=== PATIENT | male | born 1970 | race African-American/Black ===

== ENCOUNTER 2019-05-09 14:07 | Observation (INO) | payer BC ==
[2019-05-09] MEDS ORDERED: NORMAL SALINE 1000 ML 1,000 ML IV ONE (14:19)
--- NOTE | 2019-05-09 14:25 | ER Document Report ---
ED Cardiac - General Chief Complaint: Palpitations Stated Complaint: PALPITATIONS Time Seen by Provider: 05/09/19 14:12 Notes: 48-year-old male with past medical history of SVT presents for palpitations that started while fishing. Patient went to urgent care where heart rate was found to be 190. EMS was called. EMS gave adenosine 6 mg IV with no improvement and a dose of adenosine 12 mg was then given which brought her heart rate down to 110. Patient also received 300 cc of LR IV. Patient states he feels better. Patient denies any chest pain, dyspnea, nausea/vomiting, abdominal pain, fevers, dizziness/syncope. Patient states similar episode approximately 8 years ago which required medicine to convert him. Patient was recently placed on atenolol by his PCP and has been taking for past several weeks. Patient states he recently saw his dashboard developer in [facility] 2 weeks ago and had a negative nuclear stress test. - Related Data Allergies/Adverse Reactions: No Known Allergies Allergy (Verified 05/09/19 14:12) Past Medical History - Social History Smoking Status: Unknown if Ever Smoked Family History: None Review of Systems - Review of Systems Notes: Constitutional: Negative for fever. HENT: Negative for sore throat. Eyes: Negative for visual changes. Cardiovascular: Positive for palpitations. Negative for chest pain. Respiratory: Negative for shortness of breath. Gastrointestinal: Negative for abdominal pain, vomiting or diarrhea. Genitourinary: Negative for dysuria. Musculoskeletal: Negative for back pain. Skin: Negative for rash. Neurological: Negative for headaches, weakness or numbness. 10 point ROS negative except as marked above and in HPI. Physical Exam - Vital signs Vitals: Pulse Ox 98 05/09/19 14:10 - Notes Notes: GENERAL: Well-appearing, well-nourished and in no acute distress. HEAD: Atraumatic, normocephalic. EYES: Extraocular movements intact, sclera anicteric, conjunctiva are normal. NECK: Normal range of motion, supple without lymphadenopathy or JVD. LUNGS: Breath sounds clear to auscultation bilaterally and equal. No wheezes rales or rhonchi. HEART: Tachycardic without murmurs, rubs or gallops. ABDOMEN: Soft, nontender. No guarding, no rebound. No masses appreciated. EXTREMITIES: Normal range of motion, no pitting or edema. No clubbing or cyanosis. NEUROLOGICAL: Cranial nerves II through XII grossly intact. Normal speech, normal gait. PSYCH: Normal mood, normal affect. SKIN: Warm, Dry, normal turgor, no rashes or lesions noted. Course - Re-evaluation Re-evalutation: 05/09/19 48-year-old male with past medical history of SVT presents with palpitations. Patient was found to have a heart rate of 1 90-200 at urgent care and EMS was called. 6 mg of adenosine administered with no relief. 12 mg of adenosine then were given with improvement of HR to 110. Patient denies chest pain, dyspnea, dizziness/syncope. Patient states similar episode approximately 8 years ago. Patient states she just had cardiac work-up including nuclear stress test 2 weeks ago with his dashboard developer in [place]. Cardiac work-up initiated. Nontoxic in appearance well-appearing. Patient is mildly tachycardic. PE otherwise unremarkable. Patient's states he wants to go back to fishing. 05/09/19 19:[address] Delacruz who states pt needs to stay for obs. Troponin most likely elevating due to SVT. Dr. Delacruz states to also increase dose of Atenolol. Pt is currently on Atenolol 25 mg po once daily. Discussed with pt who agrees with plan of care. Pt denies ever having chest pain. 05/09/19 19:[address] Nazario who accepted pt for admission. Tele bed. - Vital Signs Vital signs: Temp Pulse Resp BP Pulse Ox 98.8 F 113 H 18 131/81 H 98 05/09/19 14:13 05/09/19 14:13 05/09/19 18:01 05/09/19 18:01 05/09/19 18:01 - Laboratory Result Diagrams: 05/09/19 14:34 05/09/19 14:34 Laboratory results interpreted by me: 05/09/19 05/09/19 14:34 14:34 Hgb 13.3 L RDW 15.6 H Creatine Kinase 221 H Discharge - Discharge Clinical Impression: Palpitations, SVT (supraventricular tachycardia), Elevated troponin Condition: Stable Disposition: ADMITTED OBSERVATION Admitting Provider: Aravind (Hospitalist) Unit Admitted: Telemetry
[2019-05-09 15:01] LABS: ABSOLUTE EOSINOPHILS # (AUTO) 0.1 10^3/uL (0.0-0.6); ABSOLUTE LYMPHOCYTES (AUTO) 2.4 10^3/uL (0.5-4.7); ABSOLUTE MONOCYTES (AUTO) 0.7 10^3/uL (0.1-1.4); ABSOLUTE NEUT (AUTO) 2.9 10^3/uL (1.7-8.2); BASOPHILS % (AUTO) 0.3 % (0-2); EOSINOPHILS % (AUTO) 0.9 % (0-6); HEMATOCRIT 40.9 % (37.9-51.0); HEMOGLOBIN 13.3 g/dL (13.5-17.0); LYMPHOCYTES % (AUTO) 39.9 % (13-45); MEAN CORPUSCULAR HEMOGLOBIN 27.7 pg (27.0-33.4); MEAN CORPUSCULAR HGB CONC 32.5 g/dL (32.0-36.0); MEAN CORPUSCULAR VOLUME 85 fl (80-97); PLATELET COUNT 266 10^3/uL (150-450); RED CELL DISTRIBUTION WIDTH 15.6 % (11.5-14.0); SEGMENTED NEUTROPHILS % (AUTO) 47.9 % (42-78); TOTAL CELLS COUNTED % (AUTO) 100 %
--- NOTE | 2019-05-09 15:18 | RADIOLOGY REPORT (SQ) ---
EXAM DESCRIPTION: CHEST SINGLE VIEW COMPLETED DATE/TIME: 05/09/2019 2:52 pm REASON FOR STUDY: mp palpitations COMPARISON: None. EXAM PARAMETERS: NUMBER OF VIEWS: One view. TECHNIQUE: Single frontal radiographic view of the chest acquired. RADIATION DOSE: NA LIMITATIONS: None. FINDINGS: LUNGS AND PLEURA: No consolidation, pleural effusion or pneumothorax. MEDIASTINUM AND HILAR STRUCTURES: No mediastinal or hilar contour abnormality. HEART AND VASCULAR STRUCTURES: The cardiac silhouette and pulmonary vasculature are within normal stanley its given the low inspiratory lung volumes. BONES: No acute findings. HARDWARE: None in the chest. OTHER: No other finding. IMPRESSION: No acute cardiopulmonary process. TECHNICAL DOCUMENTATION: JOB ID: [id number] All Rights Reserved Reading location - IP/workstation name: [email or web address]
[2019-05-09 15:20] LABS: ALKALINE PHOSPHATASE 63 U/L (38-126); ANION GAP 8 (5-19); ASPARTATE AMINO TRANSFERASE 46 U/L (17-59); BILIRUBIN,DIRECT 0.1 mg/dL (0.0-0.4); BILIRUBIN,TOTAL 0.6 mg/dL (0.2-1.3); BLOOD UREA NITROGEN 14 mg/dL (7-20); CALCIUM 10.2 mg/dL (8.4-10.2); CARBON DIOXIDE 28 mmol/L (22-30); CHLORIDE 102 mmol/L (98-107); CREATINE KINASE 221 U/L (55-170); GLUCOSE 88 mg/dL (75-110); POTASSIUM 4.1 mmol/L (3.6-5.0); TOTAL PROTEIN 7.3 g/dL (6.3-8.2)
[2019-05-09 15:32] LABS: CREATINE KINASE MB 1.85 ng/mL (<4.55)
[2019-05-09 15:37] LABS: TROPONIN I 0.054 ng/mL
[2019-05-09] MEDS ORDERED: ASPIRIN 81 MG TABLET, CHEWABLE PO ONE (18:54)
[2019-05-09] MEDS ORDERED: ATENOLOL 50 MG TABLET PO ONE (19:12)
[2019-05-09] MEDS ORDERED: ACETAMINOPHEN 325 MG TABLET PO PRN (20:01)
[2019-05-09] MEDS ORDERED: MAG HYDROX/AL HYDROX/SIMETH SUSP 30 ML UDCUP PO PRN (20:01)
--- NOTE | 2019-05-09 20:29 | EKG REPORT ---
SEVERITY:- ABNORMAL ECG - SINUS TACHYCARDIA LEFT AXIS DEVIATION ABNRM R PROG, CONSIDER ASMI OR LEAD PLACEMENT : Confirmed by: Paul Juárez MD 09-May-2019 20:27:54
[2019-05-09] MEDS: METOPROLOL TARTRATE 50 MG TABLET PO SCH (21:25)
[2019-05-09] MEDS ORDERED: ATORVASTATIN CALCIUM 80 MG TABLET PO SCH (22:00)
--- NOTE | 2019-05-10 06:16 | PDOC H&P ---
History of Present Illness Admission Date/PCP: 05/09/19 20:03 Patient complains of: Palpitations History of Present Illness: BRANNON KENNEDY is a 48 year old male with a past medical history of obesity and SVT. He presents 30 minutes after the onset of palpitations while fishing. EMS responded finding SVT with a heart rate in the 190s he received adenosine 6 fol lowed by 12 resulting in heart rate in the 1 teens. He is brought to the emergency room for evaluation denying chest pain nausea vomiting shortness of breath. EKG shows sinus tachycardia and elevated troponin of 0.195. He denies recent occurrence of SVT and has had good control over the last 8 years with only one exacerbation. He denies recent change in medications, alcohol, excessive caffeine but admits to use of herbal supplementation. He denies recent weight loss or change of bowel habits. He receives atenolol and referred to the hospitalist for admission. Past Medical History Cardiac Medical History: Reports: Hypertension, Other - SVT Pulmonary Medical History: Reports: None EENT Medical History: Reports: None Neurological Medical History: Reports: None Endocrine Medical History: Reports: None Renal/ Medical History: Reports: None Malignancy Medical History: Reports: None GI Medical History: Reports: None Musculoskeltal Medical History: Reports: None Skin Medical History: Reports: None Psychiatric Medical History: Reports: None Denies: Depression Traumatic Medical History: Reports: None Hematology: Reports: None Past Surgical History Past Surgical History: Reports: None Social History Information Source: Patient Smoking Status: Never Smoker Electronic Cigarette use?: No Frequency of Alcohol Use: None Hx Recreational Drug Use: No Drugs: None Hx Prescription Drug Abuse: No - Advance Directive Resuscitation Status: Full Code Family History Family History: Hypertension Parental Family History Reviewed: Yes Children Family History Reviewed: Yes Sibling(s) Family History Reviewed.: Yes Medication/Allergy Home Medications: Atenolol [Tenormin] 25 mg PO DAILY 05/09/19 Allergies/Adverse Reactions: No Known Allergies Allergy (Verified 05/09/19 14:12) Review of Systems Constitutional: ABSENT: chills, fever(s), headache(s), weight gain, weight loss Eyes: ABSENT: visual disturbances Ears: ABSENT: hearing changes Cardiovascular: ABSENT: chest pain, dyspnea on exertion, edema, orthropnea, palpitations Respiratory: ABSENT: cough, hemoptysis Gastrointestinal: ABSENT: abdominal pain, constipation, diarrhea, hematemesis, hematochezia, nausea, vomiting Genitourinary: ABSENT: dysuria, hematuria Musculoskeletal: ABSENT: joint swelling Integumentary: ABSENT: rash, wounds Neurological: ABSENT: abnormal gait, abnormal speech, confusion, dizziness, focal weakness, syncope Psychiatric: ABSENT: anxiety, depression, homidical ideation, suicidal ideation Endocrine: ABSENT: cold intolerance, heat intolerance, polydipsia, polyuria Hematologic/Lymphatic: ABSENT: easy bleeding, easy bruising Physical Exam Vital Signs: Temp Pulse Resp BP Pulse Ox 97.8 F 78 14 119/56 L 100 05/10/19 00:33 05/10/19 00:33 05/10/19 00:33 05/10/19 00:33 05/10/19 00:33 Intake & Output 05/08/19 05/09/19 05/10/19 11:59 11:59 11:59 Intake Total 1000 Balance 1000 Weight 143.3 kg General appearance: PRESENT: no acute distress, well-developed, well-nourished Head exam: PRESENT: atraumatic, normocephalic Eye exam: PRESENT: conjunctiva pink, EOMI, PERRLA. ABSENT: scleral icterus Ear exam: PRESENT: normal external ear exam Mouth exam: PRESENT: moist, tongue midline Neck exam: ABSENT: carotid bruit, JVD, lymphadenopathy, thyromegaly Respiratory exam: PRESENT: clear to auscultation cora. ABSENT: rales, rhonchi, wheezes Cardiovascular exam: PRESENT: RRR. ABSENT: diastolic murmur, rubs, systolic murmur Pulses: PRESENT: normal dorsalis pedis pul Vascular exam: PRESENT: normal capillary refill GI/Abdominal exam: PRESENT: normal bowel sounds, soft. ABSENT: distended, guarding, mass, organolmegaly, rebound, tenderness Rectal exam: PRESENT: deferred Extremities exam: PRESENT: full ROM. ABSENT: calf tenderness, clubbing, pedal edema Neurological exam: PRESENT: alert, awake, oriented to person, oriented to place, oriented to time, oriented to situation, CN II-XII grossly intact. ABSENT: motor sensory deficit Psychiatric exam: PRESENT: appropriate affect, normal mood. ABSENT: homicidal ideation, suicidal ideation Skin exam: PRESENT: dry, intact, warm. ABSENT: cyanosis, rash Results Laboratory Results: 05/09/19 14:34 05/09/19 14:34 05/09/19 05/09/19 05/09/19 14:34 14:34 14:34 WBC 6.0 RBC 4.80 Hgb 13.3 L Hct 40.9 MCV 85 MCH 27.7 MCHC 32.5 RDW 15.6 H Plt Count 266 Seg Neutrophils % 47.9 Sodium 138.0 Potassium 4.1 Chloride 102 Carbon Dioxide 28 Anion Gap 8 BUN 14 Creatinine 0.84 Est GFR ( Amer) > 60 Glucose 88 Calcium 10.2 Magnesium 1.8 Total Bilirubin 0.6 AST 46 Alkaline Phosphatase 63 Total Protein 7.3 Albumin 4.0 TSH 1.63 05/09/19 05/09/19 05/09/19 14:34 14:34 17:40 Creatine Kinase 221 H CK-MB (CK-2) 1.85 Troponin I 0.054 0.195 05/09/19 05/10/19 20:40 02:22 Creatine Kinase CK-MB (CK-2) Troponin I 0.252 0.134 Impressions: Chest X-Ray 05/09/19 14:10 IMPRESSION: No acute cardiopulmonary process. Assessment and Plan - Diagnosis (1) SVT (supraventricular tachycardia) Is this a current diagnosis for this admission?: Yes Plan: Likely secondary to herbal supplement use versus missed atenolol dose. Telemetry observation, increased atenolol dose every 12 ordered. Follow cardiac enzymes, education (2) Elevated troponin Is this a current diagnosis for this admission?: Yes Plan: Follow-up serial troponin - Time Time Spent with patient: 25-34 minutes - Inpatient Certification Medical Necessity: Need Close Monitoring Due to Risk of Patient Decompensation
[2019-05-10 10:31] VITALS: BP 119/56
[2019-05-10] MEDS: METOPROLOL TARTRATE 50 MG TABLET PO SCH (10:35)
--- NOTE | 2019-05-10 10:58 | PDOC DISCHARGE SUMMARY ---
Impression - Admit/DC Date/PCP Admission Date/Primary Care Provider: 05/09/19 20:03 Discharge Date: 05/10/19 - Discharge Diagnosis (1) Atrial tachycardia, paroxysmal Is this a current diagnosis for this admission?: Yes (2) Elevated troponin Is this a current diagnosis for this admission?: Yes (3) SVT (supraventricular tachycardia) Is this a current diagnosis for this admission?: Yes - Assessment Summary: Patient was admitted to the hospital after being found to be in SVT and a rate of 180s. Patient received adenosine in the ER twice with subsequent improvement of his heart rate. Patient's was restarted on his home dose of atenolol 25 mg. Troponins were initially elevated but trended down later on. I believe this is secondary to demand ischemia from his significant tachycardia. Patient never expressed any chest pain, or trouble breathing and the EKG does not show any current evidence of ischemia. At the moment patient is symptom-free and would like to go home as he has an appointment later this afternoon. On my review of patient's EKG from the ER, I believe patient may have a type of SVT called atrial tachycardia. Which seems so-called paroxysmally with his last episode being a long time ago. Patient already has an appointment for next week with his media marketing specialist Teja Dee and has had a recent echocardiogram. I will discharge patient with an increase atenolol dose of 50 mg daily from 25 mg. - Additional Information Resuscitation Status: Full Code Discharge Diet: Regular Discharge Activity: Activity As Tolerated Referrals: CARDIOLOGY,CARE [Other] - 05/16/19 (PATIENT STATES THEY ALREADY HAVE AN APPT. FOR CARDIOLOGY. UNKNOWN TIME.) Teja Dee [Other] (Follow up with your media marketing specialist as planned for next week.) Prescriptions: Atenolol [Tenormin] 50 mg PO DAILY 30 Days Home Medications: Atenolol [Tenormin] 50 mg PO DAILY 30 Days 05/10/19 History of Present Illiness History of Present Illness: BRANNON KENNEDY is a 48 year old male with a past medical history of obesity and SVT. He presents 30 minutes after the onset of palpitations while fishing. EMS responded finding SVT with a heart rate in the 190s he received adenosine 6 followed by 12 resulting in heart rate in the 1 teens. He is brought to the emergency room for evaluation denying chest pain nausea vomiting shortness of breath. EKG shows sinus tachycardia and elevated troponin of 0.195. He denies recent occurrence of SVT and has had good control over the last 8 years with only one exacerbation. He denies recent change in medications, alcohol, excessive caffeine but admits to use of herbal supplementation. He denies recent weight loss or change of bowel habits. He receives atenolol and referred to the hospitalist for admission. Physical Exam Vital Signs: Temp Pulse Resp BP Pulse Ox 97.8 F 69 18 119/56 L 99 05/10/19 10:30 05/10/19 10:30 05/10/19 10:30 05/10/19 10:30 05/10/19 10:30 Intake & Output 05/09/19 05/10/19 05/11/19 06:59 06:59 06:59 Intake Total 1000 Balance 1000 Weight 143.3 kg General appearance: PRESENT: no acute distress, cooperative Neck exam: ABSENT: JVD Respiratory exam: PRESENT: clear to auscultation cora, symmetrical, unlabored. ABSENT: tachypnea, wheezes Cardiovascular exam: PRESENT: RRR, +S1, +S2. ABSENT: diastolic murmur, systolic murmur, tachycardia GI/Abdominal exam: PRESENT: normal bowel sounds, soft. ABSENT: rebound, rigid, tenderness Extremities exam: PRESENT: pedal edema, +1 edema Results Laboratory Results: WBC 6.0 10^3/uL (4.0-10.5) 05/09/19 14:34 RBC 4.80 10^6/uL (4.35-5.55) 05/09/19 14:34 Hgb 13.3 g/dL (13.5-17.0) L 05/09/19 14:34 Hct 40.9 % (37.9-51.0) 05/09/19 14:34 MCV 85 fl (80-97) 05/09/19 14:34 MCH 27.7 pg (27.0-33.4) 05/09/19 14:34 MCHC 32.5 g/dL (32.0-36.0) 05/09/19 14:34 RDW 15.6 % (11.5-14.0) H 05/09/19 14:34 Plt Count 266 10^3/uL (150-450) 05/09/19 14:34 Lymph % (Auto) 39.9 % (13-45) 05/09/19 14:34 Sunflower % (Auto) 11.0 % (3-13) 05/09/19 14:34 Eos % (Auto) 0.9 % (0-6) 05/09/19 14:34 Baso % (Auto) 0.3 % (0-2) 05/09/19 14:34 Absolute Neuts (auto) 2.9 10^3/uL (1.7-8.2) 05/09/19 14:34 Absolute Lymphs (auto) 2.4 10^3/uL (0.5-4.7) 05/09/19 14:34 Absolute Monos (auto) 0.7 10^3/uL (0.1-1.4) 05/09/19 14:34 Absolute Eos (auto) 0.1 10^3/uL (0.0-0.6) 05/09/19 14:34 Absolute Basos (auto) 0.0 10^3/uL (0.0-0.2) 05/09/19 14:34 Seg Neutrophils % 47.9 % (42-78) 05/09/19 14:34 Sodium 138.0 mmol/L (137-145) 05/09/19 14:34 Potassium 4.1 mmol/L (3.6-5.0) 05/09/19 14:34 Chloride 102 mmol/L (98-107) 05/09/19 14:34 Carbon Dioxide 28 mmol/L (22-30) 05/09/19 14:34 Anion Gap 8 (5-19) 05/09/19 14:34 BUN 14 mg/dL (7-20) 05/09/19 14:34 Creatinine 0.84 mg/dL (0.52-1.25) 05/09/19 14:34 Est GFR ( Amer) > 60 (>60) 05/09/19 14:34 Est GFR (MDRD) Non-Af > 60 (>60) 05/09/19 14:34 Glucose 88 mg/dL (75-110) 05/09/19 14:34 Calcium 10.2 mg/dL (8.4-10.2) 05/09/19 14:34 Magnesium 1.8 mg/dL (1.6-2.3) 05/09/19 14:34 Total Bilirubin 0.6 mg/dL (0.2-1.3) 05/09/19 14:34 Direct Bilirubin 0.1 mg/dL (0.0-0.4) 05/09/19 14:34 Neonat Total Bilirubin Not Reportable 05/09/19 14:34 Neonat Direct Bilirubin Not Reportable 05/09/19 14:34 Neonat Indirect Bili Not Reportable 05/09/19 14:34 AST 46 U/L (17-59) 05/09/19 14:34 ALT 51 U/L (<50) 05/09/19 14:34 Alkaline Phosphatase 63 U/L (38-126) 05/09/19 14:34 Creatine Kinase 221 U/L (55-170) H 05/09/19 14:34 CK-MB (CK-2) 1.85 ng/mL (<4.55) 05/09/19 14:34 Troponin I 0.085 ng/mL 05/10/19 08:53 Total Protein 7.3 g/dL (6.3-8.2) 05/09/19 14:34 Albumin 4.0 g/dL (3.5-5.0) 05/09/19 14:34 TSH 1.63 uIU/mL (0.47-4.68) 05/09/19 14:34 05/09/19 05/09/19 05/09/19 14:34 17:40 20:40 CK-MB (CK-2) 1.85 Troponin I 0.054 0.195 0.252 05/10/19 05/10/19 02:22 08:53 CK-MB (CK-2) Troponin I 0.134 0.085 Impressions: Chest X-Ray 05/09/19 14:10 IMPRESSION: No acute cardiopulmonary process. Plan Time Spent: Less than 30 Minutes Stroke Is this a Stroke Patient?: No Acute Heart Failure - Is this a Heart Failure Patient?: No
== END 2019-05-10 11:11 | disposition home or self-care (01) ==
LOC: ER 14:07 → EH 20:03 → 5 05-10 00:15
PROVIDERS: ADMIT Internal Medicine; ATTEND Internal Medicine
DX: I47.1 Supraventricular tachycardia (principal); R79.89 Other specified abnormal findings of blood chemistry; I10 Essential (primary) hypertension; R60.0 Localized edema; Z82.49 Family history of ischemic heart disease and other diseases of the circulatory system; Z79.899 Other long term (current) drug therapy
CPT/HCPCS: 93005; 99285; 96360; 36415 ×2; 82553; 82550; 83735; 84443; 85025; 80053; 84484 ×2; 71045; 93010; G0378 ×2; J3490; J7030